=== PATIENT | female | born 1995 | race Caucasian/White ===

== ENCOUNTER 2016-10-07 10:43 | Day surgery (SDC) | payer BC ==
[~2016-10-07] VITALS: Ht 165.1 cm; Wt 82.1 kg
[~2016-10-07 10:43] MED LIST: TIROSINT25 MC1 PO
[2016-10-07 11:52] VITALS: BP 133/72; PULSE 75; TEMP 98
[2016-10-07] MEDS ORDERED: PROZAC 10MG10 MG PO (12:02)
[2016-10-07 14:20] VITALS: BP 105/66; PULSE 71; TEMP 97.8
[2016-10-07 14:35] VITALS: BP 114/63; PULSE 65
[2016-10-07] MEDS ORDERED: PERCOCET 325 MG1 TA2 PO (14:57)
[2016-10-07 15:00] VITALS: BP 116/74; PULSE 62
== END 2016-10-07 15:25 | disposition home or self-care (01) ==
LOC: SDCO 10:43
DX: M21.612 Bunion of left foot (principal); F41.9 Anxiety disorder, unspecified; E03.9 Hypothyroidism, unspecified; Z86.69 Personal history of other diseases of the nervous system and sense organs; Z81.8 Family history of other mental and behavioral disorders; Z83.49 Family history of other endocrine, nutritional and metabolic diseases
CPT/HCPCS: J2704; J7120